=== PATIENT | female | born 1980 | race Caucasian/White ===

== ENCOUNTER 2016-11-08 17:03 | Emergency (ER) | payer MEDICAID ==
[~2016-11-08] VITALS: Wt 61.5 kg
[~2016-11-08 17:03] MED LIST: FERR27TA; PREN1TAB49
[2016-11-08] MEDS ORDERED: IBUPROFEN 600 MG TAB PO ONE (19:30)
[2016-11-08] MEDS ORDERED: IBUP-1542 PO ×2 (19:49→21:18)
--- NOTE | 2016-11-08 19:52 | ERD ---
ER Documentation Chief Complaint Date/Time DATE: 11/08/16 TIME: 19:49 Chief Complaint right knee pain from a fall 4 days ago . no deformity (AL ELLSWORTH PA-C) HPI 36-year-old female with no significant past medical history presents to the ED complaining of a mechanical fall that occurred 3 days ago. States that she accidentally slipped and fell in the brain and landed on her left knee. That she slightly twisted her left knee. Reports that she hears a cracking noise in her left knee. Describes the pain as sharp and rates it a 6 out of 10. States that she has been taking ibuprofen for the pain. Denies any fever, chills, loss of sensation, loss of range of motion, weakness, numbness or tingling. Denies any head or neck injuries. Denies any loss of consciousness. (AL ELLSWORTH PA-C) 36-year-old otherwise healthy female presents to the emergency department with complaints of the left knee pain 3 days. Patient states that she sustained a mechanical slip and fall on the wet pavement 3 days ago and since that time has had trouble going up and down stairs. Patient states she has been hearing a cracking noise upon knee flexion. Patient describes the pain as a 6 out of 10 sharp intermittent. Last normal period was yesterday. Patient has been taking ibuprofen at home with mild relief. (HAWA SHARMA PA-C) ROS All systems reviewed and are negative except as per history of present illness. (AL ELLSWORTH PA-C) Medications Home Meds Active Scripts Ibuprofen* (Motrin*) 600 Mg Tab, 600 MG PO Q6, #30 TAB Prov:HAWA SHARMA PA-C 11/08/16 Hydrocodone/Acetaminophen (Miramonte 10-325 Tablet) 1 Each Tablet, 1 TAB PO Q6H Y for PAIN, #7 TAB Prov:HAWA SHARMA PA-C 11/08/16 Reported Medications Ferrous Sulfate (Iron) 1 Tab Tablet 11/24/10 Vits W-Ca,Fe,Fa(<1MG) () 1 Tab Tablet 11/24/10 Discontinued Scripts Ibuprofen* (Motrin*) 600 Mg Tab, 600 MG PO Q6, #30 TAB Prov:AL ELLSWORTH PA-C 11/08/16 Allergies Allergies: Coded Allergies: No Known Drug Allergies (Verified Allergy, Mild, 12/08/10) PMhx/Soc History of Surgery: No Anesthesia Reaction: No Hx Neurological Disorder: No Hx Respiratory Disorders: No Hx Cardiac Disorders: No Hx Psychiatric Problems: No Hx Miscellaneous Medical Probl: No Hx Alcohol Use: No Hx Substance Use: No Hx Tobacco Use: No Smoking Status: Never smoker (AL ELLSWORTH PA-C) Physical Exam Vitals Vital Signs Date Time Temp Pulse Resp B/P Pulse Ox O2 Delivery O2 Flow Rate FiO2 11/08/16 21:33 99.0 96 18 166/97 100 Room Air 11/08/16 17:11 97.6 100 20 150/71 100 (HAWA SHARMA PA-C) Physical Exam Const: [id number]-abr-[id number], well-nourished. In no acute distress. Head: Atraumatic, normocephalic Eyes: Normal Conjunctiva without injection ENT: Normal external ear, nose and mouth. Neck: Full range of motion. No meningismus. Resp: Clear to auscultation bilaterally. No wheezing, rhonchi, rales, or crackles. No accessory muscle use. No retractions. Cardio: Regular rate and rhythm, no murmurs Skin: No petechiae or rashes Back: No midline tenderness. No CVA tenderness. Ext: No cyanosis, or edema. Tenderness to palpation of lateral and medial aspect of left patella. No erythema, warmth to touch, ecchymosis, edema noted. Cap refill less than 2 seconds. Distal pulses intact bilaterally. Neur: Awake and alert. Normal gait and coordination. Muscle strength 5/5. Sensation intact bilaterally. Psych: Normal Mood and Affect (AL ELLSWORTH PA-C) Results 24 hrs Current Medications Medications (Trade) Dose Ordered Sig/Chava Route PRN Reason Start Time Stop Time Status Last Admin Dose Admin Ibuprofen (Motrin) 600 mg ONCE ONCE PO 11/08/16 19:30 11/08/16 19:31 DC 11/08/16 19:14 (HAWA SHARMA PA-C) Procedures/MDM This is a 36-year-old female with no significant past medical history presents the ED complaining of left knee pain after a mechanical fall. Patient is afebrile nontoxic appearing. Patient has normal vital signs. Patient was treated with ibuprofen here in the ED with improvement of her pain. A left knee x-ray was ordered to further evaluate patient. No evidence of compartment syndrome, neurologic injury, vascular injury, open joint, open fracture, tendon laceration, septic arthritis, osteomyelitis, DVT, foreign body, or other emergent conditions. Pending the x-ray results, this patient has been signed off to my colleague, Haaw Sharma PA-C for further evaluation and treatment. (AL ELLSWORTH PA-C) X-ray Knee 3V Interpreted by me: Bones: Nondisplaced fracture at the inferior pole of patella Joints: No dislocation Foreign body: None CLINICAL INDICATION: Left knee pain and injury. TECHNIQUE: AP, lateral and oblique views of the left knee were obtained. COMPARISON: None FINDINGS: There is normal mineralization. Nondisplaced fracture at the inferior pole of the patella, with intra-articular component. CT examination may be of further use. There are no significant degenerative changes. There is no joint effusion. There is no significant soft tissue swelling. IMPRESSION: Nondisplaced fracture at the inferior pole of the patella, with intra-articular component. RPTAT: [facility] Physician Vicky Date Time Electronically viewed and signed by Physician Vicky on 11/08/2016 20:12 RS/ CC: AL ELLSWORTH PA-C MDM: This is a 36-year-old female with a history of the left knee pain 3 days. History and diagnostic exam consistent with Nondisplaced fracture at the inferior pole of the patella, with intra-articular component. Patient placed in a long leg cast with need in extension. Splint Assessment: Neurovascularly intact post splint placement with good fit. I discussed with the patient the importance of following up with an retrieval specialist within the next 7 days for best management of her patellar fracture. Patient expressed understanding of and agreement with plan. Patient to continue Motrin and Miramonte for pain control at home. Patient provided with an educated on use of crutches. Based on patient's history of present illness and physical examination the decision was made to discharge. The patient was re-evaluated after ED treatment and stabilizing measures, and symptoms have improved. There is no evidence of life threatening injuries or illnesses at this time. On re-examination, patient resting in no distress, stable vital signs, reports feeling better and safe for discharge with outpatient follow up with PMD in 1-2 days. Patient given return precautions. (HAWA SHARMA PA-C) Departure Diagnosis: Primary Impression: Left knee pain Chronicity: acute Qualified Code: M25.562 - Acute pain of left knee Condition: Stable Referrals: [facility] YOU HAVE RECEIVED A MEDICAL SCREENING EXAM AND THE RESULTS INDICATE THAT YOU DO NOT HAVE A CONDITION THAT REQUIRES URGENT TREATMENT IN THE EMERGENCY DEPARTMENT. FURTHER EVALUATION AND TREATMENT OF YOUR CONDITION CAN WAIT UNTIL YOU ARE SEEN IN YOUR DOCTORS OFFICE WITHIN THE NEXT 1-2 DAYS. IT IS YOUR RESPONSIBILITY TO MAKE AN APPOINTMENT FOR FOLOW-UP CARE. IF YOU HAVE A PRIMARY DOCTOR --you should call your primary doctor and schedule an appointment IF YOU DO NOT HAVE A PRIMARY DOCTOR YOU CAN CALL OUR PHYSICIAN REFERRAL HOTLINE AT IF YOU CAN NOT AFFORD TO SEE A PHYSICIAN YOU CAN CHOSE FROM THE FOLLOWING [facility] [address] [facility]. [facility] [address] [facility] [facility] [address] [facility] [facility] [address] [facility]. [facility] [address] [facility]. [facility]. [address] [facility]. [facility] YOU HAVE RECEIVED A MEDICAL SCREENING EXAM AND THE RESULTS INDICATE THAT YOU DO NOT HAVE A CONDITION THAT REQUIRES URGENT TREATMENT IN THE EMERGENCY DEPARTMENT. FURTHER EVALUATION AND TREATMENT OF YOUR CONDITION CAN WAIT UNTIL YOU ARE SEEN IN YOUR DOCTORS OFFICE WITHIN THE NEXT 1-2 DAYS. IT IS YOUR RESPONSIBILITY TO MAKE AN APPOINTMENT FOR FOLOW-UP CARE. IF YOU HAVE A PRIMARY DOCTOR --you should call your primary doctor and schedule and appointment IF YOU DO NOT HAVE A PRIMARY DOCTOR YOU CAN CALL OUR PHYSICIAN REFERRAL HOTLINE AT . IF YOU CAN NOT AFFORD TO SEE A PHYSICIAN YOU CAN CHOSE FROM THE FOLLOWING [facility]: [facility] [address] [place] [address] [facility] [address] [place] [address] [facility] [address] [place] [address] [facility] 7 a.m.- 11 p.m. Every Day of the Week NO APPOINTMENT OR AUTHORIZATION NEEDED [facility] Hours: Mon-Fri 9:00 AM - 5:00 PM Additional Instructions: Visite a moe josé miguel hernandez para un EXAMEN.Regrese a estas instalaciones si no se mejora nish esperbamos o nish le dijimos. AL ELLSWORTH PA-C Nov 08, 2016 19:52 HAWA SHARMA PA-C Nov 08, 2016 20:19 9:00 AM - 5:00 PM Additional Instructions: Visite a moe josé miguel hernandez para un EXAMEN.Regrese a estas instalaciones si no se mejora nish esperbamos o nish le dijimos. AL ELLSWORTH PA-C Nov 08, 2016 19:52 HAWA SHARMA PA-C Nov 08, 2016 20:19
--- NOTE | 2016-11-08 20:12 | RADRPT ---
PROCEDURE: Left knee x-ray CLINICAL INDICATION: Left knee pain and injury. TECHNIQUE: AP, lateral and oblique views of the left knee were obtained. COMPARISON: None FINDINGS: There is normal mineralization. Nondisplaced fracture at the inferior pole of the patella, with intra-articular component. CT examin ation may be of further use. There are no significant degenerative changes. There is no joint effusion. There is no significant soft tissue swelling. IMPRESSION: Nondisplaced fracture at the inferior pole of the patella, with intra-articular component. RPTAT: [facility]U Physician Vicky Date Time Electronically viewed and signed by Physician Vicky on 11/08/2016 20:12 RS/
[2016-11-08] MEDS ORDERED: HYDR-902 PO (21:16)
[2016-11-08 21:33] VITALS: BP 166/97; PULSE 96; RESP 18; TEMP 99
== END 2016-11-08 21:40 | disposition home or self-care (01) ==
LOC: FTE 17:03
DX: S89.92XA Unspecified injury of left lower leg, initial encounter (principal); W01.0XXA Fall on same level from slipping, tripping and stumbling without subsequent striking against object, initial encounter; Y92.9 Unspecified place or not applicable
CPT/HCPCS: 29505; 73562; Z7610